=== PATIENT | male | born 1935 | race Caucasian/White ===

== ENCOUNTER 2017-12-18 23:56 | Emergency (ER) | payer OTHER, MEDICARE ==
[~2017-12-18] VITALS: Ht 170.2 cm; Wt 100.1 kg
[2017-12-19 02:52] VITALS: BP 160/86
== END 2017-12-19 03:07 | disposition home or self-care (01) ==
LOC: EME 23:56 → EDBD 23:56 → EME 12-19 03:07
PROC: 0HQ0XZZ Repair Scalp Skin, External Approach (ICD-10-PCS; principal; 2017-12-19)
DX: S01.01XA Laceration without foreign body of scalp, initial encounter (principal); W06.XXXA Fall from bed, initial encounter; Z79.82 Long term (current) use of aspirin; I72.5 Aneurysm of other precerebral arteries; K11.8 Other diseases of salivary glands; I63.9 Cerebral infarction, unspecified; E11.9 Type 2 diabetes mellitus without complications; E78.5 Hyperlipidemia, unspecified; I10 Essential (primary) hypertension; K21.9 Gastro-esophageal reflux disease without esophagitis; Z85.6 Personal history of leukemia; Z96.649 Presence of unspecified artificial hip joint
CPT/HCPCS: 70450; 99281; 99284